=== PATIENT | female | born 1975 | race Caucasian/White ===

== ENCOUNTER 2016-12-05 17:01 | Inpatient (IN) | payer OTHER ==
[2016-12-05] MEDS ORDERED: VANCOMYCIN 1,000 MG in DEXTROSE 5%-WATER - 250 ML IVPB ONE (17:59)
[2016-12-05] MEDS ORDERED: KETOROLAC TROMETHAMINE 30 MG/1 ML VIAL IVPUSH ONE (17:59)
[2016-12-05] MEDS ORDERED: PIPERACILLIN/TAZOB 3.375 GM/50 ML PRE-DOCKED IVPB ONE (17:59)
--- NOTE | 2016-12-05 18:20 | PDOC ---
History of Present Illness - General History Source: Patient, Old Records Exam Limitations: No Limitations - History of Present Illness Initial Comments: 12/05/16 18:33 The patient is a 41 year old female, with a significant past medical history of DM2, Obesity, joint pain, mild depression, chronic left upper and left shoulder pain (With past cortizone shots), who presents to the emergency department after being sent by the clinic for an anscess of the right buttocks for the past week. She states that the abscess started out as a small pimple but has exacerbated. She notes that the area has been draining clear and yellow discharge. She also notes that she has had a fever but has resolved. She reports that she has been taking antibiotics and using anti fungal creams with minimal improvements over the last 3 days. She also reports that she has been taking Motrin for the pain which ranges from mild to moderate, with minimal relief. The patient denies chest pain, shortness of breath, headache and dizziness. Denies fever, chills, nausea, vomit, diarrhea and constipation. Denies dysuria, frequency, urgency and hematuria. Allergies: None Past surgical history: Tonsillectomy, (x2) Social history: No alcohol, tobacco or drug use reported <Erick Salguero - Last Filed: 12/05/16 18:33> - General History Source: Patient Exam Limitations: No Limitations <Efren Chamberlain - Last Filed: 12/05/16 21:04> - General Chief Complaint: Abscess Boil Stated Complaint: PCP SENT/ABSCESS BOIL Time Seen by Provider: 12/05/16 17:27 Past History <Erick Salguero - Last Filed: 12/05/16 18:33> - Past Medical History Diabetes: Yes - Psycho/Social/Smoking Cessation Hx Suicidal Ideation: No Smoking Status: No Smoking History: Never smoked Number of Cigarettes Smoked Daily: 0 Information on smoking cessation initiated: No Hx Alcohol Use: No Drug/Substance Use Hx: No Substance Use Type: None <Efren Chamberlain - Last Filed: 12/05/16 21:04> - Past Medical History Allergies/Adverse Reactions: Allergies Allergy/AdvReac Type Severity Reaction Status Date / Time No Known Allergies Allergy Verified 12/05/16 17:08 Home Medications: Ambulatory Orders NK [No Known Home Medication] 12/05/16 Review of Systems - Review of Systems Able to Perform ROS?: Yes Comments:: 12/05/16 18:33 GENERAL/CONSTITUTIONAL: No fever or chills. No weakness. HEAD, EYES, EARS, NOSE AND THROAT: No change in vision. No ear pain or discharge. No sore throat. CARDIOVASCULAR: No chest pain or shortness of breath RESPIRATORY: No cough, wheezing, or hemoptysis. GASTROINTESTINAL: No nausea, vomiting, diarrhea or constipation. GENITOURINARY: No dysuria, frequency, or change in urination. MUSCULOSKELETAL: No joint or muscle swelling or pain. No neck or back pain. SKIN: +Right buttocks abscess. NEUROLOGIC: No headache, vertigo, loss of consciousness, or change in strength/ sensation. ENDOCRINE: No increased thirst. No abnormal weight change HEMATOLOGIC/LYMPHATIC: No anemia, easy bleeding, or history of blood clots. ALLERGIC/IMMUNOLOGIC: No hives or skin allergy. <Erick Salguero - Last Filed: 12/05/16 18:33> *Physical Exam - Vital Signs Last Vital Signs Temp Pulse Resp BP Pulse Ox 98.4 F 61 18 110/74 100 12/05/16 17:06 12/05/16 17:06 12/05/16 17:06 12/05/16 17:06 12/05/16 17:06 - Physical Exam Comments: 12/05/16 18:33 GENERAL: Awake, alert, and fully oriented, in no acute distress HEAD: No signs of trauma, normocephalic, atraumatic EYES: PERRLA, EOMI, sclera anicteric, conjunctiva clear ENT: Auricles normal inspection, hearing grossly normal, nares patent, oropharynx clear without exudates. Moist mucosa NECK: Normal ROM, supple, no lymphadenopathy, JVD, or masses LUNGS: No distress, speaks full sentences, clear to auscultation bilaterally HEART: Regular rate and rhythm, normal S1 and S2, no murmurs, rubs or gallops, peripheral pulses normal and equal bilaterally. ABDOMEN: Soft, nontender, normoactive bowel sounds. No guarding, no rebound. No masses EXTREMITIES: Normal inspection, Normal range of motion, no edema. No clubbing or cyanosis. NEUROLOGICAL: Cranial nerves II through XII grossly intact. Normal speech, normal gait, no focal sensorimotor deficits SKIN: +Large 5 by 4 cm ulcer with purulent drainage on the right superior buttocks. Warm, Dry, normal turgor. <Erick Salguero - Last Filed: 12/05/16 18:33> - Vital Signs Last Vital Signs Temp Pulse Resp BP Pulse Ox 98.4 F 61 18 110/74 100 12/05/16 17:06 12/05/16 17:06 12/05/16 17:06 12/05/16 17:06 12/05/16 17:06 <Efren Chamberlain - Last Filed: 12/05/16 21:04> ED Treatment Course - Medications Given in the ED: ED Medications Discontinued Medications Generic Name Dose Route Start Last Admin Trade Name Freq PRN Reason Stop Dose Admin Ketorolac Tromethamine 30 mg 12/05/16 17:59 12/05/16 18:24 Toradol Injection - IVPUSH 12/05/16 18:00 30 mg ONCE ONE Administration Piperacillin Sod/Tazobactam Sod 3.375 gm 12/05/16 17:59 12/05/16 18:25 Zosyn 3.375gm Ivpb (Pre-Docked) IVPB 12/05/16 18:00 3.375 gm ONCE ONE Administration Protocol <Erick Salguero - Last Filed: 12/05/16 18:33> - LABORATORY CBC & Chemistry Diagram: 12/05/16 18:02 12/05/16 18:02 <Efren Chamberlain - Last Filed: 12/05/16 21:04> Medical Decision Making - Medical Decision Making 12/05/16 18:01 A portion of this note was documented by scribe services under my direction. I have reviewed the details of the note, within reason, and agree with the documentation with the following case summary and management plan written by me. Patient treated in the ED. Nursing notes are reviewed and incorporated into the medical decision-making. Vital signs reviewed. Peripheral IV access obtained by the nurse, laboratory studies are drawn and sent, reviewed and interpreted by myself. Vital Signs Temp Pulse Resp BP Pulse Ox 98.4 F 61 18 110/74 100 12/05/16 17:06 12/05/16 17:06 12/05/16 17:06 12/05/16 17:06 12/05/16 17:06 41-year-old female with past medical history of diabetes presents with buttocks abscess. Patient reports that approximately week ago, she noted a small "bump" that progressively enlarging. She had seen her primary care physician or prescribed ampicillin which she reports she is adherent to. She reports that yesterday, the abscess had open spontaneously and had progressively worsened. She reports tactile fevers at home today. Patient saw her primary care physician Dr. lynn the ED for IV antibiotics. Patient has a large ulceration and wound not responding to oral antibiotics, I agree with the plan that the patient requires IV antibiotics and surgical evaluation for possible surgical debridement. We'll initiate adult sepsis protocol, started vancomycin and Zosyn admit the patient to the hospital. 12/05/16 21:03 CBC, BMP 12/05/16 18:02 12/05/16 18:02 CMP Sodium 139 mmol/L (136-145) 12/05/16 18:02 Potassium 4.2 mmol/L (3.5-5.1) 12/05/16 18:02 Chloride 100 mmol/L (98-107) 12/05/16 18:02 Carbon Dioxide 30 mmol/L (21-32) 12/05/16 18:02 Anion Gap 9 (8-16) 12/05/16 18:02 BUN 9 mg/dL (7-18) 12/05/16 18:02 Creatinine 0.8 mg/dL (0.55-1.02) 12/05/16 18:02 Creat Clearance w eGFR > 60 (>60) 12/05/16 18:02 Random Glucose 127 mg/dL (74-106) H 12/05/16 18:02 Lactic Acid 0.959 mmol/L (0.4-2.0) 12/05/16 18:02 Calcium 8.8 mg/dL (8.5-10.1) 12/05/16 18:02 Total Bilirubin 0.2 mg/dL (0.2-1.0) 12/05/16 18:02 AST 22 U/L (15-37) 12/05/16 18:02 ALT 76 U/L (12-78) 12/05/16 18:02 Alkaline Phosphatase 88 U/L (45-117) 12/05/16 18:02 Total Protein 7.2 g/dl (6.4-8.2) 12/05/16 18:02 Albumin 3.1 g/dl (3.4-5.0) L 12/05/16 18:02 Serum , Qual Negative 12/05/16 18:[address] Malcolm. She accepts for med/surg admission. Case discussed in detail with admitting physician including history, physical exam and ancillary studies. Admitting physician has assumed care for the patient, will follow all pending diagnostics and will complete the evaluation and treatment. <Efren Chamberlain - Last Filed: 12/05/16 21:04> *DC/Admit/Observation/Transfer - Attestations Scribe Attestion: 12/05/16 18:34 Documentation prepared by Erick Salguero, acting as director biomedical engineering for Efren Chamberlain MD <Erick Salguero - Last Filed: 12/05/16 18:33> - Discharge Dispostion Admit: Yes <Efren Chamberlain - Last Filed: 12/05/16 21:04> Diagnosis at time of Disposition: Skin ulcer Qualifiers: Non-pressure ulcer stage: with fat layer exposed Qualified Code(s): L98.492 - Non-pressure chronic ulcer of skin of other sites with fat layer exposed - Discharge Dispostion Condition at time of disposition: Stable - Referrals Referrals: Paulina Sams MD [Primary Care Provider] -
[2016-12-05] MEDS ORDERED: KETOROLAC TROMETHAMINE 30 MG/1 ML VIAL ONE (18:24)
[2016-12-05] MEDS ORDERED: PIPERACILLIN/TAZOB 3.375 GM 50 ML IVPB ONE (18:24)
[2016-12-05 18:46] LABS: BASOPHIL 0.4 % (0-2.0); EOSINOPHIL 2.6 % (0-4.5); MCH 22.9 pg (25.7-33.7); MCHC 32.5 g/dl (32.0-36.0); MEAN CELL VOLUME 70.4 fl (80-96); MEAN PLT VOLUME 7.6 fl (7.5-11.1); NEUTROPHILS 60.8 % (42.8-82.8); PLATELET COUNT 520 K/MM3 (134-434); RDW 13.8 % (11.6-15.6); WHITE BLOOD COUNT 8.6 K/mm3 (4.0-10.0)
[2016-12-05] MEDS ORDERED: VANCOMYCIN 1 GRAM (PRE-DOCKED) 250 ML IVPB ONE (19:01)
[2016-12-05 19:13] LABS: ALBUMIN 3.1 g/dl (3.4-5.0); ANION GAP 9 (8-16); BILIRUBIN,TOTAL 0.2 mg/dL (0.2-1.0); CALCIUM 8.8 mg/dL (8.5-10.1); CO2 30 mmol/L (21-32); CREATININE 0.8 mg/dL (0.55-1.02); GLUCOSE,RANDOM 127 mg/dL (74-106); SGOT/AST 22 U/L (15-37); SGPT/ALT 76 U/L (12-78)
[2016-12-05 19:14] LABS: ALK PHOS 88 U/L (45-117); TOT PROT 7.2 g/dl (6.4-8.2)
[2016-12-05] MEDS ORDERED: morphine CARPU-JECT 4 MG/1 ML DISP.SYRIN IVPUSH ONE ×2 (19:14→19:53)
[2016-12-05 19:15] LABS: INR 0.98 (0.82-1.09); PROTHROMBIN TIME (PATIENT) 10.8 SEC (9.98-11.88)
[2016-12-05] MEDS ORDERED: morphine CARPU-JECT 4 MG/1 ML DISP.SYRIN ONE (19:17)
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
--- NOTE | 2016-12-05 22:29 | PN ---
<Honey Malcolm - Last Filed: 12/05/16 22:28> Teaching Attending Note Name of Resident: Kit Farrell <Roxanna Castillo - Last Filed: 12/06/16 02:04> Teaching Attending Note ATTENDING PHYSICIAN STATEMENT I saw and evaluated the patient. I reviewed the resident's note and discussed the case with the resident. I agree with the resident's findings and plan as documented. SUBJECTIVE: 41 yo F presents from clinic with 5 x 6 cm abscess on her right bottocks for 1 week. Patient states the that she thought the abscess was a pimple when she first noticed it. Now she notes the area has been draining yellow discharge. Patient also reports a fever earlier this week that has since resolved. Patient reports shes been taking oral antibiotics and using antifungal creams with no improvement. Patient denies chest pain, sob, lightheadedness, chills and abdominal pain. Social Hx: Denies PMHx: DM2, Obesity, joint pain, mild depression, chronic left upper and left shoulder pain (With past cortizone shots) OBJECTIVE: Last Vital Signs Temp Pulse Resp BP Pulse Ox 98.4 F 61 18 110/74 100 12/05/16 17:06 12/05/16 17:06 12/05/16 17:06 12/05/16 17:06 12/05/16 17:06 GENERAL: Awake, alert, and fully oriented, in no acute distress HEENT: Atraumatic. PERRLA, EOMI. Moist mucosa. No JVD LUNGS: No distress, speaks full sentences, clear to auscultation bilaterally HEART: Regular rate and rhythm, normal S1 and S2, no murmurs, rubs or gallops, peripheral pulses normal and equal bilaterally. ABDOMEN: Obese, slight right sided tenderness to palpation, normoactive bowel sounds. No guarding, no rebound. No masses EXTREMITIES: Normal inspection, Normal range of motion, no edema. No clubbing or Cyanosis. NEUROLOGICAL: Cranial nerves II through XII grossly intact. Normal speech, normal gait, no focal sensorimotor deficits SKIN: 6 x 5 ulcer with serosanguinous drainage with induration at the lower border. Tender to palpation. Warm. CBCD WBC 8.6 K/mm3 (4.0-10.0) 12/05/16 18:02 RBC 5.08 M/mm3 (3.60-5.2) 12/05/16 18:02 Hgb 11.6 GM/dL (10.7-15.3) 12/05/16 18:02 Hct 35.8 % (32.4-45.2) 12/05/16 18:02 MCV 70.4 fl (80-96) L 12/05/16 18:02 MCHC 32.5 g/dl (32.0-36.0) 12/05/16 18:02 RDW 13.8 % (11.6-15.6) 12/05/16 18:02 Plt Count 520 K/MM3 (134-434) H 12/05/16 18:02 MPV 7.6 fl (7.5-11.1) 12/05/16 18:02 CMP Sodium 139 mmol/L (136-145) 12/05/16 18:02 Potassium 4.2 mmol/L (3.5-5.1) 12/05/16 18:02 Chloride 100 mmol/L (98-107) 12/05/16 18:02 Carbon Dioxide 30 mmol/L (21-32) 12/05/16 18:02 Anion Gap 9 (8-16) 12/05/16 18:02 BUN 9 mg/dL (7-18) 12/05/16 18:02 Creatinine 0.8 mg/dL (0.55-1.02) 12/05/16 18:02 Creat Clearance w eGFR > 60 (>60) 12/05/16 18:02 Calcium 8.8 mg/dL (8.5-10.1) 12/05/16 18:02 Total Bilirubin 0.2 mg/dL (0.2-1.0) 12/05/16 18:02 AST 22 U/L (15-37) 12/05/16 18:02 ALT 76 U/L (12-78) 12/05/16 18:02 Alkaline Phosphatase 88 U/L (45-117) 12/05/16 18:02 Total Protein 7.2 g/dl (6.4-8.2) 12/05/16 18:02 Albumin 3.1 g/dl (3.4-5.0) L 12/05/16 18:[address] Impression: Cutaneous thickening with subcutaneous stranding and infiltration along the gluteal fold superiorly on the left. This finding is consistent with cellulitis. No drainable collection is identified. Assessment and Plan Patient being admitted for 5 x 6 cm abscess with serosanguinous drainage with induration at the lower border. -Vanco -Surgery consult Diabetes -Hgb a1c -Fingersticks -ACHS -Diabetic diet Obesity -Patient counselled on diet and exercise Documentation prepared by Roxanna Castillo, acting as medical technologist chemistry for Honey Malcolm M.D.
[2016-12-05] MEDS: INSULIN SLIDING SCALE (NOVOLOG) 1 VIAL SQ SCH (22:39)
[2016-12-05 23:45] LABS: HIV 1 & 2 AB NEGATIVE; HIV 1 AGp24 NEGATIVE
[2016-12-06 02:54] VITALS: BMI 38.4
[2016-12-06 04:27] LABS: PH,URINE 6.5 (5.0-8.0); URINE APPEARANCE CLEAR; URINE BILIRUBIN NEGATIVE (NEGATIVE); URINE BLOOD NEGATIVE (NEGATIVE); URINE COLOR LT. YELLOW; URINE GLUCOSE (UA) NEGATIVE (NEGATIVE); URINE KETONE NEGATIVE (NEGATIVE); URINE NITRITE NEGATIVE (NEGATIVE); URINE PROTEIN NEGATIVE (NEGATIVE); URINE UROBILINOGEN 0.2 E.U/dl E.U./dl (0.2-1.0)
[2016-12-06 05:19] LABS: URINE LEUK ESTERASE TRACE (NEGATIVE)
[2016-12-06 05:20] LABS: URINE RBC 2 /hpf (0-3)
[2016-12-06] MEDS ORDERED: ACETAMINOPHEN 325 MG TABLET (FP) PO PRN ×2 (05:20→14:28)
[2016-12-06 05:21] LABS: URINE BACTERIA FEW /hpf (NONE SEEN); URINE WBC 10 /hpf (3-5)
[2016-12-06] MEDS: INSULIN SLIDING SCALE (NOVOLOG) 1 VIAL SQ SCH ×4 (06:06→21:30)
[2016-12-06] MEDS: CLINDAMYCIN 600MG PREMIX IVPB 50 ML IVPB SCH ×2 (10:26→17:57)
--- NOTE | 2016-12-06 12:27 | EKG ---
Test Reason : Blood Pressure : / mmHG Vent. Rate : 059 BPM Atrial Rate : 059 BPM P-R Int : 182 ms QRS Dur : 078 ms QT Int : 436 ms P-R-T Axes : 048 043 020 degrees QTc Int : 431 ms SINUS BRADYCARDIA OTHERWISE NORMAL ECG NO PREVIOUS ECGS AVAILABLE Confirmed by TREE HERRON MD ([id number]) on 12/06/2016 12:26:42 PM Referred By: Confirmed By:TREE HERRON MD
[2016-12-06] MEDS ORDERED: OXYCODONE/APAP 5/325MG COMBO TABLET PO PRN (14:13)
--- NOTE | 2016-12-06 14:14 | PN ---
Teaching Attending Note Name of Resident: Gabriele Post ATTENDING PHYSICIAN STATEMENT I saw and evaluated the patient. I reviewed the resident's note and discussed the case with the resident. I agree with the resident's findings and plan as documented. SUBJECTIVE:states pain in buttock has improved. states it started off as pimple which popped. denies picking at the wound or scratching it. states it hurts more when she lays on the wound. denies CP, SOB,fever, chills, N/V/C/D No hx of ulcers or infections OBJECTIVE: Last Vital Signs Temp Pulse Resp BP Pulse Ox 98 F 57 L 18 106/55 100 12/06/16 06:00 12/06/16 10:00 12/06/16 10:00 12/06/16 10:12/06/16 00:47 General NAD CV S1 S2 RRR no murmur/rub/gallop Lungs CTA B/L no wheezing/rales/rhonchi Skin 4x5 lesion on the L gluteal fold, induration around the lateral edge. irregular border, no drainage. area tender ASSESSMENT AND PLAN: 41yo F with PMH DM presented to the ER and was admitted for further evaluation of their emergent condition 1. L gluteal ulcer- no obvious sign of abscess, CT scan done and pending official read. Surgery consulted to see if any debridement is necessary. Vanco/ zosyn given in the ER, will d/c and start clindamycin. local wound care. f/u Cx. pain control 2. DM- uncontrolled. A1c 7.4. takes metformin at home. confirm home medications and re-start 48H after CT with contrast performed. ISS, BGM 3. Obesity- educate on lifestyle changes. dietary consult. encourage excercise. goal to loose 1 lb/week. consider bariatric surgery 4. DVT ppx- EAM
--- NOTE | 2016-12-06 14:15 | PN ---
Physical Exam: SUBJECTIVE: Patient seen and examined Pt complains of pain in right buttock ulcer No fever or chills no n/v No dizziness or confusion OBJECTIVE: Vital Signs Period Temp Pulse Resp BP Sys/Henson Pulse Ox Last 24 Hr 98 F-98.5 F 54-64 18-20 106-134/55-87 99-100 GENERAL: The patient is awake, alert, and fully oriented, in no acute distress. HEAD: Normal with no signs of trauma. LUNGS: Breath sounds equal, clear to auscultation bilaterally, no wheezes, no crackles, no accessory muscle use. HEART: Regular rate and rhythm, S1, S2 without murmur, rub or gallop. ABDOMEN: Soft, nontender, nondistended, normoactive bowel sounds, no guarding, no rebound, no hepatosplenomegaly, no masses. EXTREMITIES: 2+ pulses, warm, well-perfused, no edema. NEUROLOGICAL: Normal speech, gait not observed. PSYCH: Normal mood, normal affect. SKIN: Warm, dry, normal turgor, no rashes or lesions noted. Right buttock near gluteal fold with ulcer with redness, endurated surrounding area. Ulcer look superficial draining minimal amount of pus, unlderlying tissue pink and granulated 39 Laboratory Results - last 24 hr 12/05/16 12/05/16 12/05/16 22:25 22:31 22:31 POC Glucometer [id number] Lactic Acid 0.933 Urine Color Urine Appearance Urine pH Ur Specific [place] Urine Protein Urine Glucose (UA) Urine Ketones Urine Blood Urine Nitrite Urine Bilirubin Urine Urobilinogen Ur Leukocyte Esterase Urine RBC Urine WBC Ur Epithelial Cells Urine Bacteria HIV 1&2 Antibody Screen Negative HIV P24 Antigen Negative 12/06/16 12/06/16 12/06/16 03:30 05:48 11:56 POC Glucometer 99 117 Lactic Acid Urine Color Lt. yellow Urine Appearance Clear Urine pH 6.5 Ur Specific [place] <= 1.005 Urine Protein Negative Urine Glucose (UA) Negative Urine Ketones Negative Urine Blood Negative Urine Nitrite Negative Urine Bilirubin Negative Urine Urobilinogen 0.2 e.u/dl Ur Leukocyte Esterase Trace H Urine RBC 2 Urine WBC 10 Ur Epithelial Cells Few Urine Bacteria Few HIV 1&2 Antibody Screen HIV P24 Antigen Active Medications Generic Name Dose Route Start Last Admin Trade Name Freq PRN Reason Stop Dose Admin Acetaminophen 650 mg 12/06/16 05:20 Tylenol - PO Q4H PRN FEVER OR PAIN Clindamycin Phosphate 50 mls @ 100 mls/hr 12/06/16 10:00 12/06/16 10:26 Cleocin 600 Mg Premix Ivpb - IVPB 100 mls/hr Q8H-IV ENMANUEL Administration Insulin Aspart 1 vial 12/05/16 22:00 12/06/16 13:08 Novolog Vial Sliding Scale - SQ Not Given ACHS ENMANUEL Protocol Oxycodone/Acetaminophen 1 combo 12/06/16 14:13 Percocet 5/325 - PO Q4H PRN PAIN LEVEL 6-10 CBC, BMP 12/05/16 18:02 12/05/16 18:02 Laboratory Tests 12/05/16 12/05/16 12/05/16 18:02 18:02 18:02 INR 0.98 PTT (Actin FS) 33.0 Hemoglobin A1c % 7.4 H Lactic Acid 0.959 Ur Leukocyte Esterase Urine WBC HIV 1&2 Antibody Screen HIV P24 Antigen 12/05/16 12/05/16 12/06/16 22:31 22:31 03:30 INR PTT (Actin FS) Hemoglobin A1c % Lactic Acid 0.933 Ur Leukocyte Esterase Trace H Urine WBC 10 HIV 1&2 Antibody Screen Negative HIV P24 Antigen Negative ASSESSMENT/PLAN: 41 year old with pmh of diabetes presents to ED with a non healing gluteal ulcer after failing outpatient therapy with 7 days course of amoxicillin. Left Gluteal Ulcer received Vanco and Zosyn in ED CT pelvis done showed Surgery Dr Pfeiffer Consulted Wound care with gauze dressing Start Clindamycin 600mg IV q8h Percocet 1 tab po q4h Diabetes HgA1c 7.4 HIV negative BGM AC HS Novolog sliding scale Obesity Weight loss DVT prophylaxis Low risk, early ambulation FEN fluid: none Electrolytes: No abnormalities Nutrition: diabetic diet Disposition: keep in medsur pending surgical eval Visit type - Emergency Visit Emergency Visit: Yes ED Registration Date: 12/05/16 Care time: The patient presented to the Emergency Department on the above date and was hospitalized for further evaluation of their emergent condition. - New Patient This patient is new to me today: Yes Date on this admission: 12/06/16 - Critical Care Critical Care patient: No - Discharge Referral Referred to [facility] Med P.C[facility] No
[2016-12-06] MEDS ORDERED: oxyCODONE HCL 5 MG TABLET PO PRN (14:28)
--- NOTE | 2016-12-06 16:17 | PN ---
Progress Note (short form) - Note Progress Note: Attending Surgeon Consultation CTSP by Dr. Darin Zabala for e/m of an ABSSSI of the left medial buttock. HPI: 8 days of progressive pain and swelling and then d/c from an area of the right medial buttocks; she camee to the ER for evaluation. NOC PMHX: NIDDM PSHX: none PE AF VSS buttock-right medial buttock w/ sequelae of a spontaneously drained ABSSSI w/ exposed granulating fat and subcutaneous tissue; there is induration w/o fluctuance in need of formal I and D; there is some ttp; o/w negative; no spreading cellulitis. labs reviewed. IMP:ABSSSI of the right medial buttock PLAN:IVABS; LWC with BID showers; no surgical intervention indicated at the present time. Dawyne Pfeiffer MD FACS
[2016-12-07] MEDS: CLINDAMYCIN 600MG PREMIX IVPB 50 ML IVPB SCH ×2 (01:57→10:16)
[2016-12-07] MEDS: INSULIN SLIDING SCALE (NOVOLOG) 1 VIAL SQ SCH ×2 (06:25→11:17)
--- NOTE | 2016-12-07 13:40 | PN ---
Physical Exam: SUBJECTIVE: Patient seen and examined OBJECTIVE: GENERAL: The patient is awake, alert, and fully oriented, in no acute distress. HEAD: Normal with no signs of trauma. EYES: PERRL, extraocular movements intact, sclera anicteric, conjunctiva clear. No ptosis. ENT: Ears normal, nares patent, oropharynx clear without exudates, moist mucous membranes. NECK: Trachea midline, full range of motion, supple. LUNGS: Breath sounds equal, clear to auscultation bilaterally, no wheezes, no crackles, no accessory muscle use. HEART: Regular rate and rhythm, S1, S2 without murmur, rub or gallop. ABDOMEN: Soft, nontender, nondistended, normoactive bowel sounds, no guarding, no rebound, no hepatosplenomegaly, no masses. EXTREMITIES: 2+ pulses, warm, well-perfused, no edema. NEUROLOGICAL: Cranial nerves II through XII grossly intact. Normal speech, gait not observed. PSYCH: Normal mood, normal affect. SKIN: Warm, dry, normal turgor, no rashes or lesions noted Active Medications Generic Name Dose Route Start Last Admin Trade Name Freq PRN Reason Stop Dose Admin Acetaminophen 650 mg 12/06/16 05:20 12/06/16 21:44 Tylenol - PO 650 mg Q4H PRN Administration FEVER OR PAIN Acetaminophen 325 mg 12/06/16 14:28 Tylenol - PO 12/09/16 14:27 Q4H PRN PRN PAIN LEVEL 6-10 Clindamycin Phosphate 50 mls @ 100 mls/hr 12/06/16 10:00 12/07/16 10:16 Cleocin 600 Mg Premix Ivpb - IVPB 100 mls/hr Q8H-IV ENMANUEL Administration Insulin Aspart 1 vial 12/05/16 22:00 12/07/16 11:17 Novolog Vial Sliding Scale - SQ Not Given ACHS ENMANUEL Protocol Oxycodone HCl 5 mg 12/06/16 14:28 Roxicodone - PO Q4H PRN PRN PAIN LEVEL 6-10 ASSESSMENT/PLAN:
--- NOTE | 2016-12-07 14:01 | DS ---
Physical Exam: SUBJECTIVE: Patient seen and examined Pt is complains of moderate pain on palpation No fever or chills no n/v No difficulty walking OBJECTIVE: PHYSICAL EXAM GENERAL: The patient is awake, alert, and fully oriented, in no acute distress. HEAD: Normal with no signs of trauma. LUNGS: Breath sounds equal, clear to auscultation bilaterally, no wheezes, no crackles, no accessory muscle use. HEART: Regular rate and rhythm, S1, S2 without murmur, rub or gallop. ABDOMEN: Soft, nontender, nondistended, normoactive bowel sounds, no guarding, no rebound, no hepatosplenomegaly, no masses. EXTREMITIES: 2+ pulses, warm, well-perfused, no edema. NEUROLOGICAL: Normal speech, gait not observed. PSYCH: Normal mood, normal affect. SKIN: Warm, dry, normal turgor, no rashes or lesions noted. Right buttock near gluteal fold with ulcer with redness, endurated surrounding area. Ulcer look superficial draining minimal amount of pus, moderate amount of serosanguinous fluid, underlying tissue pink and granulated 39 LABS CBC, BMP 12/05/16 18:02 12/05/16 18:02 HOSPITAL COURSE: Date of Admission:12/07/16 41 yr old Portuguese speaking woman with NIDDM II presented to the ED with ulcer in her left gluteus for the past week. It started as a blister then "popped" draining yellow discharge. She completed a 7-day course of amoxicillin prescribed by her PCP. She says she had subjective fevers earlier in the week. Her daily fingersticks are between 130-160's. She has never been on injected insulin regime. She denies hx of skin infections, ulcer in the same region, diarrhea/constipation, new foods,clothes/lotions, chills, n/v. ER course was notable for: (1) pelvic CT 41 year old with pmh of diabetes presents to ED with a non healing gluteal ulcer after failing outpatient therapy with 7 days course of amoxicillin. Pt has a Left medial Gluteal Ulcer, It started as a pimple that got infected. Pt received Vanco and Zosyn in ED. CT pelvis was done showed Cutaneous thickening with subcutaneous stranding and infiltration along the gluteal fold superiorly on the left consistent with cellulitis; No focal drainable collection is identified. Surgery, Dr Pfeiffer, was Consulted. He said no surgical intervention was necessary at this time. Pt need to continue antibiotics, wound care and BID showers. Pt was started on IV Clindamycin 600mg IV q8h, received 2 days and Percocet 1 tab po q4h. Patient will be discharge with clindamycin 300mg PO q6h for 7 days. The patient is diabetic her HgA1c is 7.4, Pt was placed on an insulin sliding scale and require very little coverage throughout the admission. HIV was negative. hepatitis panel was negative. Patient may resume metformin tomorrow. Pt BMI is 98.43, she needs to lose weight and follow a diabetic diet. Date of Discharge: 12/07/16 Minutes to complete discharge: 40 Discharge Summary Reason For Visit: SKIN ULCER Current Active Problems Skin ulcer (Acute) Condition: Stable - Instructions Diet, Activity, Other Instructions: Discharge Home Resume diabetic diet at home Resume home medications You may restart you metformin tomorrow Start Clindamycin 300mg, 1 tablet every 6 hours for 7 days Follow up with you primary care physician within 1 [address] Follow up with Dr Pfeiffer, surgeon, within 1 week You need to do wound care daily and as needed, use saline or sterile water to clean wound with gauze. Apply gauze dressing, may use non adherent dressing covered with gauze and tape. Referrals: Dwanye Pfeiffer MD [Staff Physician] - Paulina Sams MD [Primary Care Provider] - Disposition: HOME - Home Medications Comprehensive Discharge Medication List: Ambulatory Orders Clindamycin [Cleocin -] 300 mg PO QID #28 capsule 12/07/16 This patient is new to me today: Yes Emergency Visit: Yes ED Registration Date: 12/07/16 Care time: The patient presented to the Emergency Department on the above date and was hospitalized for further evaluation of their emergent condition. Critical Care patient: No - Discharge Referral Referred to [facility] No
[2016-12-07 14:02] VITALS: BP 102/54; PULSE 64; TEMP 98.1
--- NOTE | 2016-12-07 14:26 | PN ---
Teaching Attending Note Name of Resident: Gabriele Post ATTENDING PHYSICIAN STATEMENT I saw and evaluated the patient. I reviewed the resident's note and discussed the case with the resident. I agree with the resident's findings and plan as documented. SUBJECTIVE:clinically improved. pain over area only when she lays on her bottom. insistent on going home today. denies CP, SOB,fever, chills, N/V/C/D OBJECTIVE: Last Vital Signs Temp Pulse Resp BP Pulse Ox 98.1 F 64 18 102/54 100 12/07/16 14:01 12/07/16 14:01 12/07/16 10:00 12/07/16 14:01 12/07/16 08:00 General NAD Skin 4x5 lesion on the L gluteal fold, +pink granulation tissue in the center. induration around the lateral edge. irregular border, no drainage. area tender ASSESSMENT AND PLAN: 41yo F with PMH DM presented to the ER and was admitted for further evaluation of their emergent condition 1. L gluteal ulcer with surrounding cellulitis- clinically stable. CT scan with no abscess formation. evaluated by surgery and no need for debridement. will d/ c home on clindamycin to complete 7 day course. will f/u official cx tomorrow and contact pt if not sensitive to clinda. informed pt and contact information received. wash the area twice a day and clean dry dressing to the area. avoid laying on the area. follow up with pmd in 1 week to evlauate for improvement. 2. DM- uncontrolled. A1c 7.4. resume metformin tomorrow once it will be 48H after contrast exposure. ISS, BGM 3. Obesity- educate on lifestyle changes. dietary consult. encourage excercise. goal to loose 1 lb/week. consider bariatric surgery 4. DVT ppx- EAM 5. d/c home on oral abx to complete 7 day course.
== END 2016-12-07 14:31 | disposition home health service (06) | DRG 380 ==
LOC: JER 17:01 → JERBED 21:04 → J6S 12-06 02:17 → OBSVTOIN 12-07 11:22
PROVIDERS: ADMIT Internal Medicine; ATTEND Internal Medicine
DX: L98.419 Non-pressure chronic ulcer of buttock with unspecified severity (principal); E11.65 Type 2 diabetes mellitus with hyperglycemia; E66.9 Obesity, unspecified; Z68.38 Body mass index [BMI] 38.0-38.9, adult; L03.317 Cellulitis of buttock
CPT/HCPCS: 36415; 72193-TC; 80053; 80074; 81003; 81015; 83036; 83605; 84703; 85025; 85610; 85730; 86850; 86900; 86901; 87040; 87070; 87077; 87086; 87186; 87205; 87389; 93005; 93010; 99285-25; G0378